=== PATIENT | female | born 1980 | race Caucasian/White ===

== ENCOUNTER 2017-05-06 20:31 | Emergency (ER) | payer OTHER ==
[~2017-05-06] VITALS: Ht 180.3 cm; Wt 67.3 kg
[2017-05-06 20:46] VITALS: Ht 180.3 cm; Wt 67.3 kg
[2017-05-06] MEDS ORDERED: HYDROCODONE/APAP (5/325) TAB PO STA ×2 (23:50→23:51)
--- NOTE | 2017-05-07 00:06 | RADRPT ---
PROCEDURE: XR bilateral hand. CLINICAL INDICATION: Trauma TECHNIQUE: AP, lateral and oblique views of both hands was obtained. COMPARISON: There are no similar studies submitted for comparison. FINDINGS: There is dorsal subluxation of the right fifth digit at the proximal interphalangeal joint. No acute fracture or dislocation is noted within the left hand. No osseous erosions are identified. IMPRESSION: Dorsal subluxation of the fifth digit at the proximal interphalangeal joint. RPTAT: HIKT .Chris Eagle MD, MD Date Time Electronically viewed and signed by .Chris Eagle MD, MD on 05/07/2017 00:05 .T/
[2017-05-07] MEDS ORDERED: LIDOCAINE 1% (MDV) 20 ML INJ SC ONE (00:30)
--- NOTE | 2017-05-07 01:13 | RADRPT ---
PROCEDURE: XR Hand. CLINICAL INDICATION: Trauma. Postreduction. TECHNIQUE: Three views of the right hand were obtained. COMPARISON: 05/06/2017 FINDINGS: Previously described dislocation at the proximal interphalangeal joint of the fifth digit has been r educed. No fracture is identified. Joint relationships are maintained. Bone mineralization is with in normal limits. Soft tissues are unremarkable. IMPRESSION: Successful reduction of previously described dorsal subluxation of the fifth digit at the proximal i nterphalangeal joint. RPTAT: HMVK .Davie Peoples MD, MD Date Time Electronically viewed and signed by .Davie Peoples MD, on 05/07/2017 01:13 .K/
[2017-05-07] MEDS ORDERED: IBUP400T22 PO (01:25)
--- NOTE | 2017-05-07 01:37 | ERD ---
ER Documentation Chief Complaint Chief Complaint GROUND LEVEL FALL ONTO BILAT HANDS, RT PINKY MILDLY DEFORMED & SWELLING HPI Patient is a 36-year-old female presents to the ED for concerns of right pinky finger injury and swelling. Patient states that she was walking earlier today when she had a trip and fall injury. Patient reports wearing high heels caused her to fall. Patient denies any dizziness or lightheadedness prior to injury. Patient states she landed on her bilateral hands. Patient is unable to bend her right pinky finger. Patient reports taking Tylenol prior to arrival. Patient denies any numbness or tingling. Patient denies any previous injuries to the affected extremity. Patient denies any fevers, chills, chest pain, shortness breath or loss consciousness. Patient is right-hand dominant. ROS All systems reviewed and are negative except as per history of present illness. Medications Home Meds Active Scripts Ibuprofen* (Motrin*) 400 Mg Tab, 400 MG PO Q6, #30 TAB Prov:LISA MORALES PA-C 05/07/17 Allergies Allergies: Coded Allergies: No Known Allergy (Unverified , 05/06/17) PMhx/Soc Medical and Surgical Hx: pt denies Medical Hx, pt denies Surgical Hx History of Surgery: No Anesthesia Reaction: No Hx Neurological Disorder: No Hx Respiratory Disorders: No Hx Cardiac Disorders: No Hx Psychiatric Problems: No Hx Miscellaneous Medical Probl: No Hx Alcohol Use: No Hx Substance Use: No Hx Tobacco Use: No Smoking Status: Never smoker Physical Exam Vitals Vital Signs Date Time Temp Pulse Resp B/P Pulse Ox O2 Delivery O2 Flow Rate FiO2 05/06/17 20:46 98.1 94 18 139/92 97 Physical Exam GENERAL: Well-developed, well-nourished female. Appears in no acute distress. HEAD: Normocephalic, atraumatic. EYES: Pupils are equally reactive bilaterally. EOMs grossly intact. No conjunctival erythema. ENT: Moist mucous membranes. No uvula deviation. No kissing tonsils. NECK: Supple. No meningismus. Normal range of motion of the neck. LUNG: Clear to auscultation bilaterally. No rhonchi, wheezing, rales or coarse breath sounds. HEART: Regular rate and rhythm. No murmurs, rubs or gallops. EXTREMITIES: Equal pulses bilaterally. No peripheral clubbing, cyanosis or edema. No unilateral leg swelling. NEUROLOGIC: Alert and oriented. Moving all four extremities without any difficulty. Normal speech. Steady gait. SKIN: Normal color. Warm and dry. No rashes or lesions. BILATERAL HANDS: Superficial facial abrasions noted to bilateral palms. No deep lacerations noted. Obvious deformity noted to the right pinky finger. Normal range of motion of all other digits. Nontender to palpation of metacarpals, wrist, forearm, elbow. Normal range of motion of elbow and shoulder. Sensation intact to light touch. Neurovascularly intact. (Able to give thumbs up, make an ok sign, cross digits 2 and 3, thumb to pinky opposition. 2+ RP.) No snuffbox tenderness bilaterally. Results 24 hrs Current Medications Medications (Trade) Dose Ordered Sig/José Manuel Route PRN Reason Start Time Stop Time Status Last Admin Dose Admin Acetaminophen/ Hydrocodone Bitart ([place] (5/325)) 2 tab ONCE STAT PO 05/06/17 23:50 05/06/17 23:51 DC 05/07/17 00:29 Acetaminophen/ Hydrocodone Bitart ([place] (5/325)) 1 tab ONCE STAT PO 05/06/17 23:51 05/07/17 00:07 DC Lidocaine (Xylocaine 1% (Mdv) 20 ml) 20 ml ONCE ONCE SC 05/07/17 00:30 05/07/17 00:31 DC Procedures/MDM ED COURSE: The patient was stable throughout ED course. I kept the patient and/or family informed of laboratory and diagnostic imaging results throughout the ED course. DIAGNOSTIC IMAGING: Read by radiologist. Patient: BETSY GREENFIELD : 1980 Age: 36 Sex: F [id number] DOS: 05/06/17 2303 Ordering MD: LISA MORALES PA-C Location: [facility] Room/Bed: PROCEDURE: XR bilateral hand. CLINICAL INDICATION: Trauma TECHNIQUE: AP, lateral and oblique views of both hands was obtained. COMPARISON: There are no similar studies submitted for comparison. FINDINGS: There is dorsal subluxation of the right fifth digit at the proximal interphalangeal joint. No acute fracture or dislocation is noted within the left hand. No osseous erosions are identified. IMPRESSION: Dorsal subluxation of the fifth digit at the proximal interphalangeal joint. RPTAT: HIKT .Chris Eagle MD, Date Time Electronically viewed and signed by .Chris Eagle MD, MD on 05/07/2017 00:05 .T/ CC: LISA MORALES PA-C DIAGNOSTIC IMAGING REPORT Patient: BETSY GREENFIELD : 1980 Age: 36 Sex: F MR #: [id number] DOS: 05/07/17 0021 Ordering MD: LISA MORALES PA-C Location: [facility] Room/Bed: PROCEDURE: XR Hand. CLINICAL INDICATION: Trauma. Postreduction. TECHNIQUE: Three views of the right hand were obtained. COMPARISON: 05/06/2017 FINDINGS: Previously described dislocation at the proximal interphalangeal joint of the fifth digit has been reduced. No fracture is identified. Joint relationships are maintained. Bone mineralization is within normal limits. Soft tissues are unremarkable. IMPRESSION: Successful reduction of previously described dorsal subluxation of the fifth digit at the proximal interphalangeal joint. RPTAT: HMVK .Davie Peoples MD, MD Date Time Electronically viewed and signed by .Davie Peoples MD, MD on 05/07/2017 01:13 .K/ CC: LISA MORALES PA-C PROCEDURES: Reduction by me: Anesthesia: digital block with 5 cc of lidocaine. Location: right pinky finger Technique: Gentle traction and manipulation Results: Voodoo of normal anatomic positioning Neurovascularly intact post procedure. SPLINT APPLICATION: The patient was verbally consented at bedside prior to splint application. Patient was explained the risks, benefits and alternatives to this procedure. The patient was neurovascularly intact prior to and status post application of the splint. The patient tolerated the procedure well with no complications. Splint type: metal finger splint Extremity: right pinky Indication: s/p finger dislocation MEDICATIONS GIVEN: [place], lidocaine Patient tolerated medication well with no adverse reactions. Patient reported improvement in pain. MEDICAL DECISION MAKING: This is a 36-year-old female to the presents with bilateral hand pain after a ground-level fall earlier today. Patient did have an obvious deformity to her right pinky finger. Vital signs were reviewed. Patient was afebrile. X-ray imaging showed Dorsal subluxation of the fifth digit at the proximal interphalangeal joint. Digital block was established prior to dislocation. Using gentle traction and manipulation, reduction of dislocated right pinky finger was performed. Postreduction films showed successful reduction of the previously seen subluxation. Patient was placed in a metal finger splint. Patient was advised to remain in the middle finger splint tonight and to remove it tomorrow. Patient was advised to continue range of motion exercises to avoid stiffness. At this time, patient's presentation is most consistent with right pinky finger dislocation with successful reduction. Low suspicion for carpal bone fracture, scaphoid fracture, metacarpal fracture, spinal fracture, wrist fracture, subungual hematoma, deep space laceration, compartment syndrome. PRESCRIPTIONS: Ibuprofen DISCHARGE: At this time, patient is stable for discharge and outpatient management. RICE therapy and ROM exercises were advised to avoid stiffness. I have instructed the patient to follow-up with his/her primary care physician in 1-2 days. I have discussed with the patient the possibility of needing to see an immigration law specialist for further workup and imaging if the pain persists. I have instructed the patient to promptly return to the ER for any new or worsening symptoms including increased pain, swelling, redness, warmth or fever. The patient and/or family expressed understanding of and agreement with this plan. All questions were answered. Home care instructions were provided. Departure Diagnosis: Primary Impression: Dislocation, finger Encounter type: initial encounter Qualified Code: S63.259A - Dislocation of finger, initial encounter Condition: Stable Patient Instructions: Dislocated Finger Referrals: COMMUNITY CLINICS YOU HAVE RECEIVED A MEDICAL SCREENING EXAM AND THE RESULTS INDICATE THAT YOU DO NOT HAVE A CONDITION THAT REQUIRES URGENT TREATMENT IN THE EMERGENCY DEPARTMENT. FURTHER EVALUATION AND TREATMENT OF YOUR CONDITION CAN WAIT UNTIL YOU ARE SEEN IN YOUR DOCTORS OFFICE WITHIN THE NEXT 1-2 DAYS. IT IS YOUR RESPONSIBILITY TO MAKE AN APPOINTMENT FOR FOLOW-UP CARE. IF YOU HAVE A PRIMARY DOCTOR --you should call your primary doctor and schedule an appointment IF YOU DO NOT HAVE A PRIMARY DOCTOR YOU CAN CALL OUR PHYSICIAN REFERRAL HOTLINE AT IF YOU CAN NOT AFFORD TO SEE A PHYSICIAN YOU CAN CHOSE FROM THE FOLLOWING [facility] [address] [facility] [address] [facility] [address] [facility] [address] [facility] [address] [facility]. [facility] [address] [facility]. [facility] YOU HAVE RECEIVED A MEDICAL SCREENING EXAM AND THE RESULTS INDICATE THAT YOU DO NOT HAVE A CONDITION THAT REQUIRES URGENT TREATMENT IN THE EMERGENCY DEPARTMENT. FURTHER EVALUATION AND TREATMENT OF YOUR CONDITION CAN WAIT UNTIL YOU ARE SEEN IN YOUR DOCTORS OFFICE WITHIN THE NEXT 1-2 DAYS. IT IS YOUR RESPONSIBILITY TO MAKE AN APPOINTMENT FOR FOLOW-UP CARE. IF YOU HAVE A PRIMARY DOCTOR --you should call your primary doctor and schedule and appointment IF YOU DO NOT HAVE A PRIMARY DOCTOR YOU CAN CALL OUR PHYSICIAN REFERRAL HOTLINE AT . IF YOU CAN NOT AFFORD TO SEE A PHYSICIAN YOU CAN CHOSE FROM THE FOLLOWING [facility]: [facility] [address] [place] [address] [facility] [address] [place] [address] [facility] [address] [place] [address] [facility] Hours: Mon-Fri 9:00 AM - 5:00 PM Additional Instructions: Wear splint during the nighttime. Perform range of motion exercises advised throughout the day. Call your primary care doctor TOMORROW for an appointment during the next 1-2 days.See the doctor sooner or return here if your condition worsens before your appointment time. LISA MORALES PA-C May 07, 2017 01:37
[2017-05-07 01:49] VITALS: BP 127/78; PULSE 68; RESP 18; TEMP 98.5
== END 2017-05-07 01:50 | disposition home or self-care (01) ==
LOC: FTE 20:31
DX: S63.236A Subluxation of proximal interphalangeal joint of right little finger, initial encounter (principal); W01.0XXA Fall on same level from slipping, tripping and stumbling without subsequent striking against object, initial encounter; Y92.9 Unspecified place or not applicable
CPT/HCPCS: 26770; 73130; Z7502; Z7610

== ENCOUNTER 2018-02-15 10:53 | Emergency (ER) | END 2018-02-15 13:58 | disposition home or self-care (01) ==